=== PATIENT | male | born 1985 | race Hispanic/Latino ===

== ENCOUNTER 2020-10-14 23:23 | Emergency (ER) | payer OTHER, SELFPAY ==
[2020-10-14] MEDS ORDERED: SUCCINYLCHOLINE 20 MG/ML (10 ML) IV ONE (23:24)
[2020-10-14] MEDS ORDERED: ETOMIDATE 20 MG/10 ML VIAL IV ONE (23:24)
[2020-10-14] MEDS ORDERED: ROCURONIUM 50 MG/5 ML VIAL IV ONE (23:24)
[2020-10-14] MEDS ORDERED: VECURONIUM 10 MG/VIAL IV ONE (23:47)
[2020-10-14] MEDS ORDERED: propofoL 1,000 MG/100 ML VIAL IV ONE (23:50)
[2020-10-15 00:02] LABS: Absolute Lymphocytes (CBC) 2.2 K/uL (0.7-4.9); Basophils % 0.3 % (0-1.3); Hematocrit 49.4 % (39.6-49.0); Lymphocytes % 16.7 % (15.3-44.8); MPV 8.8 fL (7.6-11.3); RBC Red Blood Cell Count 5.65 M/uL (4.33-5.43)
[2020-10-15] MEDS ORDERED: LORazepam 2 MG/ML VIAL ONE (00:03)
[2020-10-15 00:05] LABS: Protime INR 1.37
[2020-10-15] MEDS ORDERED: MIDAZOLAM HCL 2 MG/2 ML INJ ONE (00:06)
[2020-10-15] MEDS ORDERED: ACETAMINOPHEN 650MG/RECT SUPP PR ONE ×2 (00:07→00:14)
[2020-10-15] MEDS ORDERED: ACETAMINOPHEN 325 MG/SUPP PR ONE (00:08)
[2020-10-15] MEDS ORDERED: AZITHROMYCIN 500 MG INJ IVPB ONE (00:17)
[2020-10-15] MEDS ORDERED: CEFTRIAXONE/SWI 1gm 1 GM/10 ML SYR ONE (00:18)
[2020-10-15] MEDS ORDERED: NA CHLORIDE 0.9% 250 ML ONE (00:18)
[2020-10-15] MEDS ORDERED: RSI MEDICATION KIT IV ONE (00:22)
[2020-10-15 00:29] LABS: Albumin 2.6 g/dL (3.4-5.0); Bilirubin Direct 0.2 mg/dL (0-0.2); Bilirubin Total 0.6 mg/dL (0.2-1.0); Protein, Total 7.8 g/dL (6.4-8.2); Troponin (Emerg Dept Use Only) 0.31 ng/mL (0.0-0.045)
[2020-10-15 00:30] LABS: Potassium 4.5 mmol/L (3.5-5.1)
[2020-10-15 00:35] LABS: Urine Blood 2+ (NEG); Urine Glucose NEGATIVE (NEG); Urine Protein 3+ (NEG); Urine Specific Gravity >1.030 (1.005-1.030)
[2020-10-15 00:35] LABS: Urine Bacteria <20 /HPF (NONE SEEN); Urine RBC <5 /HPF (NONE SEEN); Urine Urothelial Cells <5 /HPF (NONE SEEN)
[2020-10-15] MEDS ORDERED: VECURONIUM 10 MG/VIAL IV ONE (00:51)
[2020-10-15] MEDS ORDERED: NOREPINEPHRINE 4mg/D5W 250mL 4 MG/250 ML BAG IV ONE (01:00)
[2020-10-15] MEDS ORDERED: NA CHLORIDE 0.9% 1,000 ML ONE (01:04)
[2020-10-15 01:37] LABS: SARS-COV-2 RT PCR POSITIVE (NEGATIVE)
--- NOTE | 2020-10-15 02:39 | ER ---
Nurse's Notes [facility] Name: Joshua Campbell Age: 34 yrs Sex: Male : 1985 Arrival Date: 10/14/2020 Time: 23:23 Bed 3 Private MD: Diagnosis: Respiratory failure, unspecified with hypoxia;Sepsis, unspecified organism;Hypoxemia;Coronavirus infection, unspecified Presentation: 10/14 23:17 Chief complaint: EMS states: PT was found unresponsive, was awakened with painful jb4 stimuli. O2 was 48% on RA. Respirations 40, HR 140, bgl 264, temp on scene 103.1 axillary, O2 88% on Non Rebreather. PT given 125 of solu-medrol and NS bolus started in 20 ga in LAC. 23:28 Ebola Screen: No symptoms or risks identified at this time. ea 23:29 Initial Sepsis Screen: Does the patient meet any 2 criteria? RR > 20 per min. Altered ea Mental Status. 23:29 Risk Assessment: Do you want to hurt yourself or someone else? Patient reports no ea desire to harm self or others. 10/15 00:31 Coronavirus screen: Client presents with at least one sign or symptom that may indicate ea coronavirus-19. Standard/surgical mask placed on the client. Provider contacted for isolation considerations. Initial Sepsis Screen: Does the patient have a suspected source of infection? Yes:. Onset of symptoms was October 15, 2020. 00:31 Acuity: UDAY 2 ea 00:31 Method Of Arrival: EMS: [facility] ea Historical: - Allergies: 10/14 23:29 No Known Allergies; ea - PMHx: 23:29 None; ea - PSHx: 23:29 Cholecystectomy; ea - Immunization history:: Adult Immunizations unknown. - Social history:: Smoking status: unknown. Screenin:24 Abuse screen: Denies threats or abuse. Nutritional screening: No deficits noted. rv Tuberculosis screening: No symptoms or risk factors identified. Fall Risk IV access (20 points). Assessment: 23:17 General: Appears distressed, ill, obese, Behavior is drowsy, listless. Pain: Unable to jb4 use pain scale. Patient is disoriented. Neuro: Level of Consciousness is awake, lethargic, listless, Oriented to none. Cardiovascular: skin is diophoretic, pale. Respiratory: Airway is patent Respiratory effort is labored, shallow, weak, Respiratory pattern is symmetrical, tachypnea snoring. GI: No signs and/or symptoms were reported involving the gastrointestinal system. : No signs and/or symptoms were reported regarding the genitourinary system. EENT: No signs and/or symptoms were reported regarding the EENT system. Derm: Skin is intact, Skin is diaphoretic, Skin is pale. Musculoskeletal: Circulation, motion, and sensation intact. 23:28 Reassessment: pt intubated. jb4 23:30 Reassessment: ET tube moved to 23 at the lip. jb4 10/15 00:15 Reassessment: Provider updated family on plan of care. ea 00:17 Reassessment: Provider notifed that PT is hypotensive after intubation. Propafol jb4 infusion decreased by half to 10mcg/kg/min. Verbal order received to prep Pt for central line placement. 01:15 Reassessment: PT remains intubated. ET Tube, Central line, IV's, Arzate, NG tube remain jb4 in place. PT remains unconscious with no s/s of pain or distress noted. 02:16 Reassessment: Et tube move to 22 at the lip. Provider is updating family at the bedside.jb4 02:50 Reassessment: Pt remains intubated. lungs are CTA OPHELIA. PT remains resting calmly in bed jb4 with IV's infusion via central without issue. Family remains at the bedside. Provider updated family on POC. 02:56 Reassessment: Report given to Noel GODDARD at [facility] ICU. ea 03:00 Reassessment: PT remains intubated and sedated. Lungs remain CTA OPHELIA. No s/s of pain or jb4 distress noted. All previous mentioned lines and tubes remain in place and patent. 04:00 Reassessment: No changes from previously documented assessment. jb4 04:33 Reassessment: PT transferred out VIA EMS. All previously mentioned tubes and lines jb4 remain in place and patent. Pt remains intubated and sedated. No s/s of pain or distress noted upon leaving the ED/. Vital Signs: 10/13 23:37 BP 126 / 77; Pulse 143; Resp 32; Pulse Ox 89% ; ea 10/15 00:15 BP 74 / 45; Pulse 135; Resp 33; Temp 105.6; Pulse Ox 97% on ETT vent; ea 00:30 BP 81 / 56; Pulse 134; Resp 33; Pulse Ox 96% on 100% FiO2 ETT vent; rv 00:45 BP 94 / 60; Pulse 130; Resp 19; Temp 104.1(C); Pulse Ox 94% on 100% FiO2 ETT vent; rv 01:41 BP 147 / 87; Pulse 123; Resp 23; Temp 101.6; Pulse Ox 90% ; ea 02:37 BP 113 / 64; Pulse 123; Resp 34; Temp 100.6; Pulse Ox 91% ; ea 03:50 BP 104 / 77; Pulse 110; Resp 20; Temp 99.9(C); Pulse Ox 98% on 100% FiO2 ETT vent; jb4 ED Course: 10/14 23:23 Patient arrived in ED. rv 23:24 Inserted saline lock: 20 gauge in right hand, using aseptic technique. Blood collected. rv 23:24 Maintain EMS IV. Dressing intact. Good blood return noted. Site clean \\T\\ dry. Gauge \\T\\ rv site: 20 g LAC. 23:27 Patient has correct armband on for positive identification. Placed in gown. Bed in low ea position. Call light in reach. Side rails up X2. teletypesetter monitor on. Pulse ox on. NIBP on. 23:28 Assisted provider with intubation via oral route. ET tube secured at 25cm at the lips. jb4 Set up intubation tray. Intubated by Nicola Herzog MD Placement verified by CO2 detector w/ + color change, auscultating bilateral breath sounds, CXR, Patient tolerated well. 23:28 Arm band placed on right wrist. Patient placed in an exam room, on a stretcher, on ea oxygen, on cardiac nurse specialist, on pulse oximetry. 23:34 Jamila [phone] patient's sister. mw2 23:36 Nicola Herzog MD is Attending Physician. tw4 23:59 CXR XRAY In Process Unspecified. EDMS 10/15 00:01 Griffin Dale, RN is Primary Nurse. jb4 00:18 Arzate cath inserted, using sterile technique, 16 Fr., by ED staff, balloon inflated, to rv gravity drainage, urine specimen collected. NGT: inserted 12 Fr. via left nare. verified placement of air over stomach, verified return of gastric contents, to intermittent suction. Patient tolerated well. 00:23 Notified ED physician of a critical lab result(s). D-DIMER [id number]. rv 00:31 Triage completed. ea 00:45 Assisted provider with central line placement. Set up central line tray. Triple lumen jb4 line placed in right femoral. Line placed by Nicola Herzog MD Placement verified by blood return, Dressed with Tegaderm, Patient tolerated well. 01:39 initiated a transfer with Felicia Lewis from [facility]. mw2 01:42 CT Chest For PE Angio In Process Unspecified. EDMS 02:13 called [facility] spoke to Tiffany to check [facility] ICU bed status. She mw2 stated " we are at saturation.". 02:25 administrative approval given by Felicia Lewis/ patient has been accepted to [facility] mw2 [facility] ICU bed 213/ Dr. Cali has accepted the patient in transfer/ report to be called to [phone]. 02:38 Patient transferred, IV remains in place. ea 03:12 CXR XRAY In Process Unspecified. EDMS Administered Medications: 10/14 23:25 Drug: Etomidate 20 mg Route: IVP; Site: right antecubital; jb4 23:50 Follow up: Response: No adverse reaction jb4 23:25 Drug: Succinylcholine 100 mg Route: IVP; Site: right antecubital; jb4 23:50 Follow up: Response: No adverse reaction jb4 23:48 Drug: Ativan 2 mg Route: IVP; Site: left hand; jb4 10/15 00:15 Follow up: Response: No adverse reaction; Marked relief of symptoms jb4 10/14 23:58 Drug: Tylenol Suppository 650 mg Route: RI; rv 10/15 02:24 Follow up: Response: No adverse reaction ea 10/14 23:58 Drug: Tylenol Suppository 325 mg Route: RI; rv 10/15 02:24 Follow up: Response: No adverse reaction ea 00:01 Drug: Rocephin (cefTRIAXone) 1 grams {Note: Administered by RN. Livier} Route: IV; jb4 Rate: calculated rate; Site: left antecubital; 00:04 Follow up: Response: No adverse reaction; IV Status: Completed infusion; IV Intake: [id number] 00:08 Drug: AZITHromycin 500 mg Route: IVPB; Infused Over: 1 hrs; Site: left wrist; jb4 01:08 Follow up: Response: No adverse reaction; IV Status: Completed infusion; IV Intake: jb4 250ml 00:30 Drug: VecuroNIUM 10 mg Route: IVP; Site: left antecubital; rv 01:00 Follow up: Response: No adverse reaction; Marked relief of symptoms jb4 00:54 Drug: Norepinephrine (4 mg/250 mL D5W) 4 mcg/min Route: IV; Rate: calculated rate; rv Site: right femoral; 04:33 Follow up: Response: No adverse reaction; IV Status: Infusion continued upon transfer jb4 00:55 Drug: NS 0.9% 1000 ml Route: IV; Rate: 100 ml/hr; Site: right femoral; rv 04:33 Follow up: Response: No adverse reaction; IV Status: Infusion continued upon transfer jb4 02:35 Drug: Decadron - Dexamethasone 10 mg Route: IVP; Site: left hand; jb4 03:00 Follow up: Response: No adverse reaction; Marked relief of symptoms jb4 Intake: 00:04 IV: 10ml; Total: 10ml. jb4 01:08 IV: 250ml; Total: 260ml. jb4 Outcome: 02:38 ER care complete, transfer ordered by . tw4 04:33 Transferred by [facility]. to other acute care facility: [facility]. jb4 Transfer form completed. X-rays sent w/ patient. 04:33 Condition: stable 04:33 Discharge instructions given to family, Instructed on the need for admit, Demonstrated understanding of instructions. 04:36 Patient left the ED. jb4 Signatures: Dispatcher [employer] EDMS Griffin Dale RN RN jb4 Jolnee Conley RN RN ea Wadley, Terrence, MD MD tw4 Kerrie Broderick 2 Lincoln Cai RN RN rv Corrections: (The following items were deleted from the chart) 04:36 04:30 Transferred by [facility]. Transfer form completed. X-rays sent w/ jb4 patient. jb4 04:36 04:30 Condition: stable jb4 jb4 04:36 04:30 Discharge instructions given to family, Instructed on the need for admit, jb4 Demonstrated understanding of instructions, jb4 04:36 04:30 Transferred by ground EMS [facility]. to other acute care facility: [facility]. Transfer form completed. X-rays sent w/ patient. jb4
--- NOTE | 2020-10-15 02:39 | EDPHYS ---
Physician Documentation [facility] Name: Joshua Campbell Age: 34 yrs Sex: Male : 1985 Arrival Date: 10/14/2020 Time: 23:23 Bed 3 Private MD: ED Physician Nicola Herzog HPI: 10/15 01:02 This 34 yrs old Male presents to ER via EMS with complaints of SOB. tw4 01:02 The patient has shortness of breath at rest. Onset: The symptoms/episode began/occurred tw4 today. Duration: The symptoms UNKNOWN. The patient's shortness of breath has no apparent modifying factors. Severity of symptoms: At their worst the symptoms were severe in the emergency department the symptoms are unchanged. Unable to obtain HPI due to patient distress. pt was found by EMS unresponsive and in distress. Historical: - Allergies: 10/14 23:29 No Known Allergies; ea - PMHx: 23:29 None; ea - PSHx: 23:29 Cholecystectomy; ea - Immunization history:: Adult Immunizations unknown. - Social history:: Smoking status: unknown. ROS: 10/15 01:02 Constitutional: Negative for fever, chills, and weight loss, Eyes: Negative for injury, tw4 pain, redness, and discharge, Cardiovascular: Negative for chest pain, palpitations, and edema, Abdomen/GI: Negative for abdominal pain, nausea, vomiting, diarrhea, and constipation, Back: Negative for injury and pain, MS/Extremity: Negative for injury and deformity, Skin: Negative for injury, rash, and discoloration, Neuro: Negative for headache, weakness, numbness, tingling, and seizure. Respiratory: Positive for shortness of breath. Exam: 01:02 Head/Face: Normocephalic, atraumatic. Chest/axilla: Normal chest wall appearance and tw4 motion. Nontender with no deformity. No lesions are appreciated. Cardiovascular: Regular rate and rhythm with a normal S1 and S2. No gallops, murmurs, or rubs. Normal PMI, no JVD. No pulse deficits. 01:02 Constitutional: The patient appears diaphoretic, in obvious distress, severely distressed, pale. 01:02 Respiratory: severe repiratory distress is noted, Respirations: paradoxical chest movement, that is moderate, shallow respirations, Breath sounds: decreased breath sounds. 01:06 Back: No spinal tenderness. No costovertebral tenderness. Full range of motion. tw4 Skin: Warm, dry with normal turgor. Normal color with no rashes, no lesions, and no evidence of cellulitis. MS/ Extremity: Pulses equal, no cyanosis. Neurovascular intact. Full, normal range of motion. 01:06 Abdomen/GI: Inspection: distension, that is moderate. 01:06 Neuro: Orientation: Not oriented to person, place, time, Mentation: slow to respond, confused, Cerebellar function: unable to test, confused, Motor: unable to test, confused. Vital Signs: 10/13 23:37 BP 126 / 77; Pulse 143; Resp 32; Pulse Ox 89% ; ea 10/15 00:15 BP 74 / 45; Pulse 135; Resp 33; Temp 105.6; Pulse Ox 97% on ETT vent; ea 00:30 BP 81 / 56; Pulse 134; Resp 33; Pulse Ox 96% on 100% FiO2 ETT vent; rv 00:45 BP 94 / 60; Pulse 130; Resp 19; Temp 104.1(C); Pulse Ox 94% on 100% FiO2 ETT vent; rv 01:41 BP 147 / 87; Pulse 123; Resp 23; Temp 101.6; Pulse Ox 90% ; ea 02:37 BP 113 / 64; Pulse 123; Resp 34; Temp 100.6; Pulse Ox 91% ; ea 03:50 BP 104 / 77; Pulse 110; Resp 20; Temp 99.9(C); Pulse Ox 98% on 100% FiO2 ETT vent; jb4 Procedures: 04:48 Intubation: Intubated orally using # 4 Genia blade with 7.5 mm ETT. was successful tw4 on first attempt. Ventilated with ventilator. Tube secured with ETT chavez at right side of mouth Placement verified by CXR, CO2 detector with (+) color change, auscultating bilateral breath sounds, Patient tolerated well. Central Line: the site was prepped with Betadine, in sterile fashion, a triple lumen catheter was inserted, in the right femoral vein, in 1 attempts. placement was verified, by blood return, the site was dressed with Tegaderm, the patient tolerated the procedure, well. MDM: 10/14 23:36 Patient medically screened. tw4 10/15 01:02 Antibiotic administration: Rocephin and Zithromax given. Data reviewed: vital signs, tw4 nurses notes. Data interpreted: monitoring and evaluation advisor: rhythm is sinus tachycardia, Pulse oximetry: Interpretation: hypoxia. Test interpretation: by ED physician or midlevel provider: ECG, plain radiologic studies. 04:48 Differential diagnosis: CHF exacerbation, Myocardial Infarction pneumonia, Pneumothorax tw4 pulmonary edema, Pulmonary Embolism reactive airway disease, Sepsis. Counseling: I had a detailed discussion with the patient and/or guardian regarding: the historical points, exam findings, and any diagnostic results supporting the discharge/admit diagnosis, radiology results, the need to transfer to another facility. 04:48 ED course: Pt transferred to [facility] for higher level of care. tw4 10/14 23:25 Order name: Blood Culture Adult (2) kb 10/14 23:25 Order name: BMP kb 10/14 23:25 Order name: C-Reactive Protein kb 10/14 23:25 Order name: CBC with Diff kb 10/14 23:25 Order name: D-Dimer kb 10/14 23:25 Order name: Ferritin kb 10/14 23:25 Order name: Lactate kb 10/14 23:25 Order name: LFT's kb 10/14 23:25 Order name: Lipase kb 10/14 23:25 Order name: Procalcitonin kb 10/14 23:25 Order name: PT-INR kb 10/14 23:25 Order name: Ptt, Activated kb 10/14 23:25 Order name: Troponin (emerg Dept Use Only) kb 10/14 23:25 Order name: Urine Microscopic Only; Complete Time: 01:37 kb 10/14 23:25 Order name: Blood Culture EDMS 10/14 23:25 Order name: Basic Metabolic Panel; Complete Time: 01:37 EDMS 10/14 23:26 Order name: C-Reactive Protein; Complete Time: 01:37 EDMS 10/14 23:26 Order name: CBC with Automated Diff; Complete Time: 01:37 EDMS 10/14 23:26 Order name: D-Dimer; Complete Time: 01:37 EDMS 10/14 23:26 Order name: Ferritin; Complete Time: 01:37 EDMS 10/14 23:26 Order name: Lactate; Complete Time: 01:37 EDMS 10/14 23:26 Order name: Liver (Hepatic) Function; Complete Time: 01:37 EDMS 10/14 23:26 Order name: Lipase; Complete Time: 01:37 EDMS 10/14 23:26 Order name: Procalcitonin; Complete Time: 01:43 EDMS 10/14 23:26 Order name: Protime (+INR); Complete Time: 01:37 EDMS 10/14 23:26 Order name: PTT, Activated Partial Thromb; Complete Time: 01:37 EDMS 10/14 23:26 Order name: Troponin (Emerg Dept Use Only); Complete Time: 01:37 EDMS 10/15 00:01 Order name: Urine Dipstick--Ancillary (enter results); Complete Time: 01:37 mw2 10/14 23:25 Order name: CXR XRAY kb 10/14 23:25 Order name: EKG; Complete Time: 23:26 kb 10/14 23:25 Order name: Cardiac monitoring; Complete Time: 00:09 kb 10/14 23:25 Order name: Droplet/Contact Precautions; Complete Time: 00:09 kb 10/14 23:25 Order name: EKG - Nurse/Tech; Complete Time: 00:09 kb 10/14 23:25 Order name: Arzate; Complete Time: 00:09 kb 10/14 23:25 Order name: IV Start; Complete Time: 00:09 kb 10/14 23:25 Order name: Labs collected and sent; Complete Time: 00:09 kb 10/14 23:25 Order name: O2 Per Protocol; Complete Time: 00:09 kb 10/14 23:25 Order name: O2 Sat Monitoring; Complete Time: 00:09 kb 10/14 23:25 Order name: Urine Dipstick-Ancillary (obtain specimen); Complete Time: 02:38 kb 10/14 23:47 Order name: CT Chest For PE Angio tw4 10/15 01:38 Order name: COVID-19/FLU A+B; Complete Time: 01:43 EDMS 10/15 02:35 Order name: Central Line Kit; Complete Time: 02:35 jb4 10/15 03:03 Order name: CXR XRAY tw4 10/15 03:37 Order name: Lactate Sepsis 2 HR Follow-up EDMS EC:02 Rate is 140 beats/min. Rhythm is regular. QRS Lucinda is Normal. NV interval is normal. tw4 QRS interval is normal. QT interval is normal. No Q waves. T waves are Normal. No ST changes noted. Clinical impression: Sinus tachycardia. Interpreted by me. Reviewed by me. Administered Medications: 10/14 23:25 Drug: Etomidate 20 mg Route: IVP; Site: right antecubital; jb4 23:50 Follow up: Response: No adverse reaction jb4 23:25 Drug: Succinylcholine 100 mg Route: IVP; Site: right antecubital; jb4 23:50 Follow up: Response: No adverse reaction jb4 23:48 Drug: Ativan 2 mg Route: IVP; Site: left hand; jb4 10/15 00:15 Follow up: Response: No adverse reaction; Marked relief of symptoms jb4 10/14 23:58 Drug: Tylenol Suppository 650 mg Route: NV; rv 10/15 02:24 Follow up: Response: No adverse reaction ea 10/14 23:58 Drug: Tylenol Suppository 325 mg Route: NV; rv 10/15 02:24 Follow up: Response: No adverse reaction ea 00:01 Drug: Rocephin (cefTRIAXone) 1 grams {Note: Administered by RN. Livier} Route: IV; jb4 Rate: calculated rate; Site: left antecubital; 00:04 Follow up: Response: No adverse reaction; IV Status: Completed infusion; IV Intake: [id number] 00:08 Drug: AZITHromycin 500 mg Route: IVPB; Infused Over: 1 hrs; Site: left wrist; jb4 01:08 Follow up: Response: No adverse reaction; IV Status: Completed infusion; IV Intake: jb4 250ml 00:30 Drug: VecuroNIUM 10 mg Route: IVP; Site: left antecubital; rv 01:00 Follow up: Response: No adverse reaction; Marked relief of symptoms jb4 00:54 Drug: Norepinephrine (4 mg/250 mL D5W) 4 mcg/min Route: IV; Rate: calculated rate; rv Site: right femoral; 04:33 Follow up: Response: No adverse reaction; IV Status: Infusion continued upon transfer jb4 00:55 Drug: NS 0.9% 1000 ml Route: IV; Rate: 100 ml/hr; Site: right femoral; rv 04:33 Follow up: Response: No adverse reaction; IV Status: Infusion continued upon transfer jb4 02:35 Drug: Decadron - Dexamethasone 10 mg Route: IVP; Site: left hand; jb4 03:00 Follow up: Response: No adverse reaction; Marked relief of symptoms jb4 Disposition: 04:48 Critical Care:. tw4 Disposition: 10/15/20 02:38 Transfer ordered to Other Acute Care Facility. Diagnosis are Respiratory failure, unspecified with hypoxia, Sepsis, unspecified organism, Hypoxemia, Coronavirus infection, unspecified. - Reason for transfer: Higher level of care. - Accepting physician is Dr Cali. - Condition is Stable. - Problem is new. - Symptoms have worsened. Critical care time excluding procedures: 04:48 Critical care time: Bedside Care: 45 minutes, Consultation: 5 minutes, Family tw4 Intervention: 15 minutes. Total time: 65 minutes Signatures: Dispatcher [employer] EDMS Cyndy Dubois, GRETCHEN WAREHOUSE DRIVER-Griffin Garnica, RUPESH GODDARD jb4 Jolene Conley RN RN ea Wadley, Terrence, MD MD tw4 Lincoln Cai RN RN rv Corrections: (The following items were deleted from the chart) 10/14 23:50 23:26 Influenza Screen (A \T\ B)+BA.LAB.BRZ ordered. EDMS EDMS 23:51 23:26 CORONAVIRUS+MR.LAB.BRZ ordered. EDNH EDMS 10/15 01:07 01:02 Abdomen/GI: Soft, non-tender, with normal bowel sounds. No distension or tympany. tw4 No guarding or rebound. No evidence of tenderness throughout. Back: No spinal tenderness. No costovertebral tenderness. Full range of motion. Skin: Warm, dry with normal turgor. Normal color with no rashes, no lesions, and no evidence of cellulitis. MS/ Extremity: Pulses equal, no cyanosis. Neurovascular intact. Full, normal range of motion. Neuro: Awake and alert, GCS 15, oriented to person, place, time, and situation. Cranial nerves II-XII grossly intact. Motor strength 5/5 in all extremities. Sensory grossly intact. Cerebellar exam normal. Normal gait. tw4 04:36 02:38 10/15/2020 02:38 Transfer ordered to Other Acute Care Facility. Diagnosis is jb4 Respiratory failure, unspecified with hypoxia; Sepsis, unspecified organism; Hypoxemia; Coronavirus infection, unspecified. Reason for transfer: Higher level of care. Accepting physician is Dr Cali. Condition is Stable. Problem is new. Symptoms have worsened. tw4
[2020-10-15] MEDS ORDERED: dexAMETHasone 10 MG/ML VIAL ONE (02:56)
[2020-10-15] MEDS ORDERED: propofoL 1,000 MG/100 ML VIAL IV ONE (04:01)
--- NOTE | 2020-10-15 09:05 | RAD REPORT ---
EXAM DESCRIPTION: RAD - Chest Single View - 10/15/2020 12:00 am CLINICAL HISTORY: DYSPNEA COMPARISON: April 2012 TECHNIQUE: AP portable chest image was obtained 10/15/2020 12:00 am . FINDINGS: Endotracheal tube is in place. Tip is T2 level approximately 1 centimeter above the aortic arch. Dense airspace opacification present throughout the left lung field and right upper lobe. Significant but less dense right lower line opacification present. Trachea is midline. Heart size is obscured by the dense airspace disease. Central vasculature is obscured by the dense lung disease as well. No me asurable pleural effusion and no pneumothorax. No acute bony abnormality seen. No acute aortic findin gs suspected. IMPRESSION: Endotracheal tube in place with tip 1 centimeter above the aortic arch. Dense airspace opacification throughout both lung kern worse on the left. Extensive bilateral pneum onia would be a primary consideration. Cardiogenic or noncardiogenic pulmonary edema can have a simil ar presentation.
--- NOTE | 2020-10-15 13:29 | RAD REPORT ---
EXAM DESCRIPTION: CT - Chest For Pe Angio - 10/15/2020 2:36 am CLINICAL HISTORY: The patient is 34 years old and is Male; hypoxia resp failure TECHNIQUE: Axial computed tomographic angiography images of the chest with intravenous contrast. S agittal and coronal reformatted images were created and reviewed. This CT exam was performed using one or more of the following dose reduction techniques: automated exposure control, adjustment of t he mA and/or kV according to patient size, and/or use of iterative reconstruction technique. MIP re constructed images were created and reviewed. COMPARISON: No relevant prior studies available. FINDINGS: Pulmonary arteries: Unremarkable. No pulmonary embolism. Aorta: No acute findings. No thoracic aortic aneurysm. Inferior vena cava: There is reflux of contrast into the IVC which can be seen with right heart d ysfunction. Lungs: Extensive bilateral multifocal consolidation. Pleural space: Unremarkable. No significant effusion. No pneumothorax. Heart: The right heart appears mildly dilated/enlarged. There is prominent pericardial fat. Bones/joints: No acute fracture. No dislocation. Soft tissues: Unremarkable. Lymph nodes: Unremarkable. No enlarged lymph nodes. Liver: There is fatty infiltration of the liver. Gallbladder and bile ducts: Gallbladder is surgically absent. Tubes, lines and devices: Endotracheal tube with tip 4.5 cm above the shahriar. Nasogastric tube with tip in the stomach. IMPRESSION: 1. No evidence of pulmonary embolism. 2. Extensive bilateral multifocal consolidation. Findings are suggestive of multifocal pneumonia. 3. Gallbladder is surgically absent. 4. There is fatty infiltration of the liver. 5. There is reflux of contrast into the IVC which can be seen with right heart dysfunction. 6. The right heart appears mildly dilated/enlarged. Electronically signed by: Quique Fletcher MD 10/15/2020 2:00 AM CDT Due to temporary technical issues with the PACS/Fluency reporting system, reports are being signed by the in House radiologists without review as a courtesy to insure prompt reporting. The interpreting radiolog ist is fully responsible for the content of the report.
--- NOTE | 2020-10-15 13:32 | RAD REPORT ---
EXAM DESCRIPTION: RAD - Chest Single View - 10/15/2020 3:12 am CLINICAL HISTORY: The patient is 34 years old and is Male; ETT PLACEMENT TECHNIQUE: Frontal view of the chest. COMPARISON: No relevant prior studies available. FINDINGS: Lungs: Extensive multifocal bilateral airspace opacities. Pleural space: Unremarkable. No pneumothorax. Heart: Unremarkable. Mediastinum: Unremarkable. Bones/joints: Unremarkable. Tubes, lines and devices: Endotracheal tube with tip 4.5 cm above the shahriar. There is a nasogastric tube which is poorly visualized inferiorly. IMPRESSION: Extensive multifocal bilateral airspace opacities. Endotracheal tube with tip 4.5 cm abo ve the shahriar. Electronically signed by: Quique Fletcher MD 10/15/2020 3:29 AM CDT Due to temporary technical issues with the PACS/Fluency reporting system, reports are being signed by the in house radiologists without review as a courtesy to insure prompt reporting. The interpreting radiologist is fully responsible for the content of the report.
[2020-10-15 19:11] VITALS: BP 104/77; TEMP 99.9; O2SAT 98
== END 2020-10-15 04:36 ==
LOC: ER 23:23
PROC: 0BH17EZ Insertion of Endotracheal Airway into Trachea, Via Natural or Artificial Opening (ICD-10-PCS; principal; 2020-10-14)
DX: A41.9 Sepsis, unspecified organism (principal); U07.1 COVID-19; J96.91 Respiratory failure, unspecified with hypoxia
CPT/HCPCS: 0240U; 31500; 36415; 71045; 71275; 80048; 80076; 81003; 81015; 82728; 83605; 83690; 84145; 84484; 85025; 85379; 85610; 85730; 86140; 87040; 93005; 99291; 99292; J0330; J0456; J0696; J1100; J2250; J2704; J7030; J7050; Q9967